=== PATIENT | female | born 1935 | race Hispanic/Latino ===

== ENCOUNTER 2018-10-21 06:49 | Emergency (ER) | payer OTHER ==
--- NOTE | 2018-10-21 08:26 | Emergency Department Report ---
ED CPR HPI - General Chief Complaint: Cardiac Arrest/CPR Stated Complaint: CARDIAC ARREST Source: EMS Mode of arrival: Stretcher Limitations: Altered Mental Status - History of Present Illness Initial Comments: Assisted note on Aishwarya Haji. She is still listed as emergency medical. However I then directed to document on this chart. Patient is an elderly lady I am told 83 years of age who is oxygen dependent and was on a scientology travel group in a [facility]. Paramedics report to me that they found the patient with no signs of life, fixed and dilated pupils and in asystole. They reported that although they believe there was indications for field pronouncement, they decided to attempt resuscitation. The patient had been seen more than 20 minutes earlier. I later spoke with her longtime friend who told me that she was having quite a bit of breathing difficulty during the night. She has a history of COPD. Paramedics provided airway assist standard ACLS protocols. They stated that the patient remained in asystole. There was no return of spontaneous circulation at all. There were no signs of life. On arrival the patient met criteria for pronouncement of . MD Complaint: found unresponsive -: minute(s) Place: other (hotel) Bystander CPR Performed: No Initial Findings in the Field: unresponsive, systole (no signs of life) ROSC in the Field: No Associated Symptoms: shortness of breath Treatments Prior to Arrival: BMV, chest compressions, epinephrine mgs # ED Review of Systems ROS: Stated complaint: CARDIAC ARREST Other details as noted in HPI Comment: Unobtainable due to pts medical conditions ED Past Medical Hx - Past Medical History Previous Medical History?: Yes Hx COPD: Yes - Social History Smoking Status: Unknown if ever smoked Other Social History: On a scientology group tour ED Physical Exam - General General appearance: obtunded (comatose) - Head Head exam: Present: atraumatic - Eye Pupils: Present: other (fixed and dilated pupils) - Neck Neck exam: Present: normal inspection - Respiratory Respiratory exam: Present: other (breath sounds present with BMV) - Cardiovascular Cardiovascular Exam: Present: other (normal heart sounds) - GI/Abdominal GI/Abdominal exam: Present: soft - Extremities Exam Extremities exam: Present: normal inspection - Neurological Exam Neurological exam: Present: other (GCS is 3) - Skin Skin exam: Present: warm ED Course - Reevaluation(s) Reevaluation #1: A Doppler exam was performed with. The patient had a few complexes with no associated mechanical flow. She was pronounced first in asystole and then later PEA was verified. There was no sign of life. Her friend was counseled. 10/21/18 08:28 Critical care attestation.: If time is entered above; I have spent that time in minutes in the direct care of this critically ill patient, excluding procedure time. ED Disposition Clinical Impression: Cardiac arrest Disposition: DC-20 Is pt being admited?: No Does the pt Need Aspirin: No Condition: Stable Time of Disposition: 08:29
== END 2018-10-21 11:00 ==
LOC: ED 06:49